=== PATIENT | male | born 1960 | race Caucasian/White ===

== ENCOUNTER 2021-05-17 10:06 | Emergency (ER) | payer BC, OTHER ==
[2021-05-17] MEDS ORDERED: MORPHINE SULFATE 4 MG/ML SYRINGE IM STA (10:34)
--- NOTE | 2021-05-17 10:44 | ED ---
Upper Extremity HPI - General Chief Complaint: Extremity Injury, Upper Stated Complaint: fall/shoulder injury Time Seen by Provider: 05/17/21 10:21 Source: patient Mode of arrival: ambulatory - History of Present Illness Initial Comments: Patient is a 60-year-old male presenting to the emergency Department with complaints of right shoulder pain. He states that just prior to arrival he was up about 2 feet on a ladder when the ladder slipped and he fell off to his right side landing on his right shoulder. He states he did not hit his head. His only complaint is right shoulder discomfort. He is unable to move the right shoulder. He is not on blood thinners, he has no pain in his chest, no trouble breathing, no abdominal pain. He has no further complaints at this time. Upon arrival to the ER his vitals are stable. - Related Data Home Medications Medication Instructions Recorded Confirmed No Known Home Medications 04/28/16 04/28/16 Allergies Allergy/AdvReac Type Severity Reaction Status Date / Time No Known Allergies Allergy Verified 05/17/21 10:19 Review of Systems ROS Statement: Those systems with pertinent positive or pertinent negative responses have been documented in the HPI. ROS Other: All systems not noted in ROS Statement are negative. Past Medical History Past Medical History: No Reported History History of Any Multi-Drug Resistant Organisms: None Reported Past Surgical History: Orthopedic Surgery, Tonsillectomy Additional Past Surgical History / Comment(s): LT KNEE SCOPE. LT ROTATOR CUFF REPAIR/SCOPE. SINUS SX Past Anesthesia/Blood Transfusion Reactions: No Reported Reaction Past Psychological History: No Psychological Hx Reported Smoking Status: Never smoker Past Alcohol Use History: Occasional Past Drug Use History: None Reported - Past Family History Mother Family Medical History: No Reported History General Exam - General Exam Comments Initial Comments: GENERAL: Patient is well-developed and well-nourished. Patient is nontoxic and in moderate distress. HEAD: Atraumatic, normocephalic. There is no hematoma. EYES: Pupils equal round and reactive to light, extraocular movements intact, sclera anicteric, conjunctiva are normal. Eyelids were unremarkable. ENT: TMs normal, nares patent, oropharynx clear without exudates. Moist mucous membranes. NECK: Normal range of motion, supple without lymphadenopathy or JVD. No midline tenderness. LUNGS: Unlabored respirations. Breath sounds clear to auscultation bilaterally and equal. No wheezes rales or rhonchi. HEART: Regular rate and rhythm without murmurs, rubs or gallops. ABDOMEN: Soft, nontender, normoactive bowel sounds. No guarding, no rebound. No masses appreciated. : Deferred MUSCULOSKELETAL: Patient has obvious deformity of the right shoulder, AC joint separation, he is neurovascular intact, clinical documentation specialist strength is normal although painful. He has no active range of motion secondary to pain. Rest of extremities within normal limits. No clubbing or cyanosis. NEUROLOGICAL: Patient is alert and oriented x 3. Normal speech, normal gait. PSYCH: Normal mood, normal affect. SKIN: Warm, Dry, normal turgor, no rashes or lesions noted. Course Vital Signs 05/17/21 05/17/21 10:17 11:30 Temperature 98.7 F 98.2 F Pulse Rate 66 78 Respiratory 18 16 Rate Blood Pressure 132/82 132/78 O2 Sat by Pulse 99 99 Oximetry Procedures - Orthopedic Splinting/Casting Injury #1 Side: right Upper Extremity Injury Location: shoulder Upper Extremity Immobilizer: sling/shoulder immobilizer Medical Decision Making - Medical Decision Making Patient is a 60-year-old male here with right shoulder pain after he fell about 2 feet off a ladder landing solely on his right shoulder. He has an obvious deformity of the AC joint. He did not hit his head, there is no other injuries. X-ray reveals a before meals joint separation, no dislocation no other fractures. Patient was placed in a sling, will give him pain medicine to go home with. He will follow up with orthopedics. He is in agreement this plan of care and is stable for discharge. Case discussed with Dr. Rae. Disposition Clinical Impression: Separation of right acromioclavicular joint Disposition: HOME SELF-CARE Condition: Stable Instructions (If sedation given, give patient instructions): Acromioclavicular Separation (ED) Additional Instructions: Please return to the Emergency Department if symptoms worsen or any other concerns. Keep shoulder in sling, use ice the area. Alternate between ibuprofen and Tylenol for discomfort. May use Tylenol threes for more severe pain. Follow up with orthopedics first thing Tuesday morning. Is patient prescribed a controlled substance at d/c from ED?: No Referrals: Duke Palacio MD [Primary Care Provider] - 1-2 days Yo Nino DO [Doctor of Osteopathic Medicine] - 1-2 days Time of Disposition: 11:22
[2021-05-17] MEDS ORDERED: ACET/COD 300 MG/30 MG STARTER PACK 6 TAB BTL PO STA (11:22)
[2021-05-17 11:31] VITALS: BP 132/78; PULSE 78; RESP 16; TEMP 98.2
--- NOTE | 2021-05-17 11:47 | XR ---
EXAMINATION TYPE: XR shoulder limited RT DATE OF EXAM: 05/17/2021 COMPARISON: NONE HISTORY: Right shoulder pain and deformity after fall TECHNIQUE: Single frontal right shoulder radiograph FINDINGS AND IMPRESSION: Superior dislocation of the right acromioclavicular joint with associated soft tissue swelling and h ematoma. No apparent dislocation or fracture involves the right glenohumeral joint though this cannot be exclu ded on a single frontal view. Right hemithorax is unremarkable.
== END 2021-05-17 11:30 | disposition home or self-care (01) ==
LOC: EC 10:06
DX: S43.101A Unspecified dislocation of right acromioclavicular joint, initial encounter (principal); W01.0XXA Fall on same level from slipping, tripping and stumbling without subsequent striking against object, initial encounter
CPT/HCPCS: 73020; 99283; 96372; J2270